=== PATIENT | female | born 1995 | race Caucasian/White ===

== ENCOUNTER 2019-08-31 01:16 | Inpatient (IN) | payer BC ==
[2019-08-31] MEDS ORDERED: Ringers Lactate 1,000 ML IV PRN (04:02)
[2019-08-31] MEDS ORDERED: METHYLERGONOVINE 0.2MG/ML AMP IM PRN (04:02)
[2019-08-31] MEDS ORDERED: MEPERIDINE HCL 25 MG/0.5 ML IV PRN (04:02)
[2019-08-31] MEDS ORDERED: CARBOPROST TROME 250 MCG/ML IM PRN (04:02)
[2019-08-31] MEDS ORDERED: BUTORPHANOL 1 MG/ML INJ IV PRN (04:02)
[2019-08-31] MEDS ORDERED: PROMETHAZINE 25 MG/ML VIAL IM PRN (04:02)
[2019-08-31] MEDS ORDERED: LIDOCAINE 1% MPF 30 ML VIAL SQ ONE (04:11)
[2019-08-31 04:39] VITALS: BMI 38.2
[2019-08-31 04:42] LABS: Absolute Lymphocytes (CBC) 2.3 K/uL (0.7-4.9); Basophils % 0.3 % (0-1.3); Hematocrit 33.5 % (36.0-45.0); Lymphocytes % 30.8 % (15.3-44.8); MPV 9.9 fL (7.6-11.3)
[2019-08-31] MEDS ORDERED: Ringers Lactate 1,000 ML IV SCH (05:00)
[2019-08-31] MEDS ORDERED: OXYTOCIN/LR 20 UNIT/1,000 ML BAG IV SCH ×2 (05:00→18:00)
[2019-08-31 05:54] LABS: Urine Appearance CLEAR; Urine Bilirubin NEGATIVE (NEG); Urine Blood NEGATIVE (NEG); Urine Color YELLOW; Urine Glucose NEGATIVE (NEG); Urine Microscopic Reflex ORDER UMIC; Urine Protein NEGATIVE (NEG); Urine Specific Gravity 1.015 (1.005-1.030); Urine pH 6.5 (5.0-7.0)
[2019-08-31 06:06] LABS: Urine Bacteria <20 /HPF (<20); Urine Culture Reflex Order REFLEXED; Urine RBC NONE SEEN /HPF (NONE SEEN)
--- NOTE | 2019-08-31 07:38 | PREOPHP ---
Date of Admission: 08/31/2019 24-year-old 2, para 1, at 39 weeks. Rh positive, immune to Rubella. Negative beta strep scr een. Franchesca regularly. FHT is normal, reactive. Vital signs stable. She admits that she stop ped taking her vitamins a week or more before she came in. She is on the mildly anemic side , 2.5 to 3 cm, 50% effaced, vertex, well applied, -1 station. Rupture of membranes, clear fluid. Jarrett marcos states that she is going to try natural childbirth with possibly IV analgesics, but of course s he retains the option of changing her mind and getting epidural she chooses. Anticipate delivery peewee etime later today. GILMA/SARAH Voice ID: [id number]
[2019-08-31] MEDS ORDERED: Oxycodone HCl/Acetaminophen 1 TAB TAB PO PRN ×2 (17:43)
[2019-08-31] MEDS ORDERED: IBUPROFEN 200 MG TAB PO PRN (17:43)
[2019-08-31] MEDS ORDERED: DIPHENHYDRAMINE 25 MG TAB/CAP PO PRN (17:43)
[2019-08-31] MEDS ORDERED: ACETAMINOPHEN 500 MG TAB PO PRN (17:43)
[2019-08-31] MEDS ORDERED: DOCUSATE NA/SENNA CONC 1 TAB PO PRN (17:43)
[2019-08-31] MEDS ORDERED: BISACODYL 10 MG RECTAL SUPP RECT PRN (17:43)
--- NOTE | 2019-08-31 20:44 | PN ---
Patient is now 7 cm, but the baby is still 0 station to almost -1. She is definitely making cervical change, has a little bloody show. The baby I think is still posterior. Baby looks much better now that she is not on Pitocin, but we will turn the Pitocin back on since there has been an hour and a h correction or more since it was stopped. We will just go with 2 milliunits at this point and progress very cautiously. Full discussion with patient and family. GILMA/SARAH Voice ID: [id number] Report ID: [id number]
--- NOTE | 2019-09-01 04:06 | OP ---
Surgeon: Pee Vasquez MD A 24-year-old 2, para 1, 39 weeks gestation for induction. Stadol 1 mg IV during the first s tage of labor, otherwise the patient used Lamaze breathing techniques to best advantage. After achie ving 7 cm, went to complete rapidly second stage of 15 minutes or less. Spontaneous vaginal delivery of an estimated 6.5 to 7 pounds female, Apgars 9 and 9. Very small first-degree lacerations sutured with 3 stitches, 2-0 chromic after local infiltration. Schultze delivery of the placenta, which was inspected and noted to be intact and normal. Less than 200 mL blood loss. Rh positive, immune to R ubella. Negative beta strep screen. Tolerated all procedures well. Final Diagnoses: Term intrauterine at 39 weeks. Vaginal delivery. GILMA/SARAH Voice ID: [id number] Report ID: [id number]
--- NOTE | 2019-09-01 07:36 | DS ---
Hospital Course: 24-year-old 2, para 1, 39 weeks gestation, delivered a 6 pound, 6 ounce fem bryn. Apgars 9 and 9. Very small first-degree laceration sutured with interrupted sutures of 3-0 chr omic with local infiltration. Schultze delivery of the placenta, which was inspected and noted to be intact and normal. Less than 200 mL blood loss. Rh positive, immune to Rubella. Negative beta str ep screen. ; afebrile, ambulating and voiding. Lochia is normal. Requests no analgesics on dismissal. Full dismissal instructions given. To report back to my office in 6 weeks for followu p, to report any temperature elevation of 100 degrees or greater, severe pain, heavy bleeding, or any other type of abnormalities. Tdap immunization was offered multiple times during the , dec lined, but patient states she will get it before dismissal, but declines flu shot. Final Diagnoses: Term intrauterine at 39 weeks, vaginal delivery. Tdap and flu shots offe red. GILMA/SARAH Voice ID: [id number] Report ID: [id number]
[2019-09-01 16:19] VITALS: BP 111/66; TEMP 96.8
[2019-09-01] MEDS ORDERED: Tdap (Diph,Pertuss(Acell),Tet Vac) 0.5 ML SYR IMVAC ONE (18:00)
[2019-09-01 21:01] LABS: RPR (Rapid Plasma Reagin) NON-REACT (NON-REACT)
[2019-09-02 03:38] LABS: HBsAG Nonreactive (Nonreactive)
--- NOTE | 2019-09-03 10:20 | PN ---
Patient is now 5.5 cm, 90% effaced. Baby is still -1 station. Occiput posterior. She is having young k discomfort. She will do pelvic rocks with the next few contractions. Vital signs are all still qu ite stable. Scalp electrode was placed for better evaluation of the baby. Patient is doing still qu ite well, has not requested epidural. GILMA/SARAH Voice ID: [id number] Report ID: [id number]
--- NOTE | 2019-09-03 10:23 | PREOPHP ---
Date of Admission: 08/31/2019 History Of Present Illness: Ms. Lamb is a 33-year-old female, 3, para 2-0-0-2, no w at 39+ weeks gestation. She is admitted for induction of labor secondary to term with a favorable cervix. She has been followed by me during this with complications of mild anemi a and recurrent/persistent UTIs. Past Medical History: Please see record. Family History: Please see record. Review of Systems: She reports no recent cough, cold, fever, or chills. No recent nausea or vomiting. No breast knots or lumps. Infant has been active. She denies any bladder or bowel symptoms currently. Physical Examination: General: Reveals female in no apparent distress. Neck: Supple without adenopathy or thyromegaly. Lungs: Clear. Cardiac: Regular rate and rhythm without murmurs. Breasts: Not examined. Abdomen: Estimated weight is 7+ to 8+ pounds. Pelvic: Cervix 3 cm dilated, 80% effaced, vert ex, -1 station. Extremities: No cyanosis, clubbing, or edema. Impression: A 39+ week , favorable cervix, recurrent urinary tract infections. Plan: Patient will be admitted for induction of labor. She has signed operative permit in my presen ce. DONAVON/SARAH Voice ID: [id number]
== END 2019-09-01 19:43 | disposition home or self-care (01) | DRG 807 ==
LOC: 2ND-WC 03:54
PROVIDERS: ADMIT Specialist; ATTEND Specialist
PROC: 10E0XZZ Delivery of Products of Conception, External Approach (ICD-10-PCS; principal; 2019-08-31)
PROC: 10907ZC Drainage of Amniotic Fluid, Therapeutic from Products of Conception, Via Natural or Artificial Opening (ICD-10-PCS; 2019-08-31)
PROC: 0HQ9XZZ Repair Perineum Skin, External Approach (ICD-10-PCS; 2019-08-31)
DX: O70.0 First degree perineal laceration during delivery (principal); Z37.0 Single live birth; Z3A.39 39 weeks gestation of pregnancy; Z23 Encounter for immunization
CPT/HCPCS: 36415; 81003; 81015; 85025; 86592; 86901; 87086; 87088; 87340; 90471; 90715; J0595; J2210; J2550; J2590; J7120

== ENCOUNTER 2021-12-27 02:20 | Inpatient (IN) | payer BC, SELFPAY ==
[2021-12-27] MEDS ORDERED: Ringers Lactate 1,000 ML IV PRN (04:35)
[2021-12-27] MEDS ORDERED: BUTORPHANOL 1 MG/ML INJ IV PRN (04:35)
[2021-12-27] MEDS ORDERED: PROMETHAZINE INJ 25 MG/ML AMP IM PRN (04:35)
[2021-12-27] MEDS ORDERED: METHYLERGONOVINE 0.2MG/ML AMP IM PRN (04:35)
[2021-12-27] MEDS ORDERED: CARBOPROST TROME 250 MCG/ML IM PRN (04:35)
[2021-12-27 04:48] VITALS: BMI 36.9
[2021-12-27] MEDS ORDERED: OXYTOCIN/LR 20 UNIT/1,000 ML BAG IV SCH ×2 (05:00→11:00)
[2021-12-27] MEDS ORDERED: Ringers Lactate 1,000 ML IV SCH (05:00)
[2021-12-27 05:04] LABS: Urine Appearance CLOUDY (Clear); Urine Bilirubin NEGATIVE (Negative); Urine Blood 1+ (Negative); Urine Color YELLOW (Yellow); Urine Glucose NEGATIVE (Negative); Urine Protein NEGATIVE (Negative); Urine Specific Gravity 1.015 (1.005-1.030); Urine pH 6.5 (5.0-7.0)
[2021-12-27 05:05] LABS: Absolute Lymphocytes (CBC) 2.1 K/uL (0.7-4.9); Hematocrit 31.4 % (36.0-45.0); Lymphocytes % 27.1 % (15.3-44.8); MPV 9.9 fL (7.6-11.3); RBC Red Blood Cell Count 3.65 M/uL (3.86-4.86)
[2021-12-27 05:07] LABS: Urine Microscopic Reflex ORDER UMIC
[2021-12-27 05:30] LABS: Urine Bacteria >50 /HPF (<20); Urine RBC <5 /HPF (NONE SEEN)
[2021-12-27] MEDS ORDERED: LIDOCAINE 1% MPF 30 ML VIAL ONE (10:08)
[2021-12-27] MEDS ORDERED: BISACODYL 10 MG RECTAL SUPP RC PRN (10:44)
[2021-12-27] MEDS ORDERED: Oxycodone HCl/Acetaminophen 1 TAB TAB PO PRN ×2 (10:44)
[2021-12-27] MEDS ORDERED: ACETAMINOPHEN 500 MG TAB PO PRN (10:44)
[2021-12-27] MEDS ORDERED: DOCUSATE NA/SENNA CONC 1 TAB PO PRN (10:44)
[2021-12-27] MEDS ORDERED: IBUPROFEN 600 MG TAB PO PRN (10:44)
[2021-12-27] MEDS ORDERED: DIPHENHYDRAMINE 25 MG TAB/CAP PO PRN (10:44)
--- NOTE | 2021-12-27 11:04 | PREOPHP ---
Date of Admission: 12/27/2021 History Of Present Illness: A 26-year-old, 3, para 2. 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 She is now at 39 weeks. The cervix today is 3 cm, 50% effaced, vertex well applied. Rupture of memb ranes, clear fluid. FHTs normal, reactive. Vital signs all stable. Labor talk given. Anticipate v aginal delivery later today. The patient has gone natural with her other . Says she wants to do the same with this . She is Rh positive, immune to rubella, negative COVID, and negat natasha strep. Family History: Maternal grandmother with myocardial infarction. Maternal grandmother and mother wi th gallstones. Maternal grandfather with colon cancer. Past Medical History: No serious medical illnesses. Past Surgical History: No previous surgeries. Allergies: NO ALLERGIES. Medications: No medications prior to admission other than vitamins and iron. Social History: Does not smoke. Physical Examination: HEENT: Clear. Pupils equal, round, reactive to light and accommodation. Conjunctivae well perfused . No oral, lingual, or buccal lesions. Chest and Lungs: Clear. Heart: Without murmurs, thrills, heaves, or rubs. Breasts: Without masses on previous visits. Extremities: Clear without edema, cyanosis, or clubbing. Pelvic: As stated. Assessment And Plan: The patient now is approximately 3 cm with rupture of membranes, clear fluid. She is on 8 milliunits of Pitocin. We will increase the Pitocin as the day goes on and anticipate delivery sometime later today. GILMA/SARAH Voice ID: [id number]
[2021-12-27 23:18] LABS: RPR (Rapid Plasma Reagin) NON-REACT (NON-REACT)
[2021-12-28 08:00] VITALS: BP 129/72; TEMP 97.4
--- NOTE | 2021-12-28 08:31 | DS ---
Date of Discharge: 12/28/2021 Hospital Course: A 26-year-old, 3, para 2, 39 weeks gestation. The patient is a surrogate m other. Has done well during the . Admitted for labor induction, 3 cm in the morning. Yest erday, rupture of membranes, clear fluid. The patient went completely natural, went rapidly to compl ete. Second stage of about 10-15 minutes. Spontaneous vaginal delivery of a 7-pound 10-ounce male i nfant, Apgars 9 and 9. No episiotomy. No laceration. Schultze delivery of the placenta, which was inspected and noted to be intact and normal. Less than 200 cc blood loss at that point. Cord blood for banking obtained in a sterile manner, at least 200 cc. Rh positive, immune to rubella, negative strep, negative COVID. ; afebrile, ambulating, voiding. Lochia is normal. She will be di smissed later this morning to report back to my office in 6 weeks for followup to report any temperat ure elevation of 100 degrees or greater, severe pain, heavy bleeding, or any other type of problems. Final Diagnoses: Term intrauterine 39 weeks. Labor induction. Vaginal delivery. Cord bl ood obtained for banking. Surrogate . GILMA/SARAH Voice ID: [id number] Report ID: [id number]
[2021-12-31 05:19] LABS: HBsAG Nonreactive (Nonreactive)
--- NOTE | 2022-01-01 14:22 | OP ---
Surgeon: Pee Vasquez MD 26-year-old 3, para 2, 39 weeks gestation, surrogate gestation 39 weeks, Rh positive, immune to rubella, negative Strep, negative COVID, 3 cm this morning rupture of membranes, clear fluid. Melanie ent went to good labor, went rapidly to complete. Second stage of about 10 minutes. Spontaneous vag inal delivery of a 7-pound 10-ounces male infant, 's 9 and 9. No episiotomy. No lacerations. Cord blood specimen obtained for cord blood banking. Sterile technique at least 200 cc obtained, the n cord blood for our analysis. Placenta delivered spontaneously [place], inspected and noted to be intact and normal. Blood loss at this point 200 cc or less. The patient tolerated all procedures we ll. Completely natural child . Final Diagnosis: Term intrauterine at 39 weeks. Surrogate , vaginal delivery. C ord blood specimen for banking obtained. GILMA/SARAH Voice ID: [id number] Report ID: [id number]
== END 2021-12-28 07:50 | disposition home or self-care (01) | DRG 807 ==
LOC: 2ND-WC 04:00
PROVIDERS: ADMIT Specialist; ATTEND Specialist
PROC: 10E0XZZ Delivery of Products of Conception, External Approach (ICD-10-PCS; principal; 2021-12-27)
PROC: 10907ZC Drainage of Amniotic Fluid, Therapeutic from Products of Conception, Via Natural or Artificial Opening (ICD-10-PCS; 2021-12-27)
PROC: 3E033VJ Introduction of Other Hormone into Peripheral Vein, Percutaneous Approach (ICD-10-PCS; 2021-12-27)
DX: O80 Encounter for full-term uncomplicated delivery (principal); Z37.0 Single live birth; Z3A.39 39 weeks gestation of pregnancy; Z20.822 Contact with and (suspected) exposure to COVID-19
CPT/HCPCS: 36415; 81003; 81015; 85025; 86592; 86850; 86900; 86901; 87086; 87088; 87340; J2210; J2590; J7120; U0003